=== PATIENT | female | born 1995 | race Caucasian/White ===

== ENCOUNTER 2017-07-06 21:48 | Emergency (ER) | payer BC, OTHER ==
[2017-07-06 22:18] VITALS: BP 127/84
[2017-07-06] MEDS ORDERED: metroNIDAZOLE TAB* 250 MG PO ONE (23:00)
--- NOTE | 2017-07-06 23:01 | UC ---
Complaint Female HPI - HPI Summary HPI Summary: vag d/c and itch and terminal dysuria for about a week - History Of Current Complaint Chief Complaint: UCGU Stated Complaint: POSSIBLE UTI Time Seen by Provider: 07/06/17 22:37 Hx Obtained From: Patient Hx Last Menstrual Period: 2 MOS Onset/Duration: Gradual Onset, Lasting Weeks Timing: Constant Severity Initially: Moderate Severity Currently: None Pain Intensity: 0 - hurst with urination Pain Scale Used: 0-10 Numeric Character: Burning Aggravating Factor(s): Urination Associated Signs And Symptoms: Positive: Vaginal Discharge. Negative: Fever, Back Pain, Nausea, Vomiting(# Of Episodes =), Genital Swelling, Genital Blisters , Retained Foregin Body (Specify) Related Hx: Prior STD Hx - HPV - Allergies/Home Medications Allergies/Adverse Reactions: Allergies Allergy/AdvReac Type Severity Reaction Status Date / Time Bee Venom Allergy Hives/Diff. Verified 08/16/16 09:49 Breathing/I tching Home Medications: Home Medications Ibuprofen TAB* [Advil TAB*] 600 mg PO Q6H PRN 07/06/17 [History Confirmed ] PMH/Surg Hx/FS Hx/Imm Hx Previously Healthy: Yes Other History Of: Negative For: HIV, Hepatitis B, Hepatitis C, Anticoagulant Therapy - Surgical History Surgical History: None Surgery Procedure, Year, and Place: [place] - Family History Known Family History: Positive: Hypertension - paternal grandmother, Diabetes - father Negative: Cardiac Disease - Social History Alcohol Use: Rare Substance Use Type: None Smoking Status (MU): Never Smoked Tobacco Review of Systems Constitutional: Negative Skin: Negative Eyes: Negative ENT: Negative Respiratory: Negative Cardiovascular: Negative Gastrointestinal: Negative Genitourinary: Dysuria, Other - vaginal d/c Motor: Negative Neurovascular: Negative Musculoskeletal: Negative Neurological: Negative Psychological: Negative Is Patient Immunocompromised?: No All Other Systems Reviewed And Are Negative: Yes Physical Exam Triage Information Reviewed: Yes Appearance: Well-Appearing, No Pain Distress, Well-Nourished Vital Signs: Initial Vital Signs Temp 98.2 F 07/06/17 22:12 Pulse 74 07/06/17 22:12 Resp 20 07/06/17 22:12 BP 127/84 07/06/17 22:12 Pulse Ox 100 07/06/17 22:12 Vital Signs Reviewed: Yes Eyes: Positive: Conjunctiva Clear ENT: Positive: Hearing grossly normal. Negative: Nasal congestion, Nasal drainage Neck: Positive: Supple Respiratory: Positive: Lungs clear, Normal breath sounds, No respiratory distress, No accessory muscle use Cardiovascular: Positive: RRR, No Murmur, Pulses Normal Abdomen Description: Positive: Nontender, No Organomegaly, Other: - ext gen- no lesions, vagina- thin d/c with fishy smell, cx scant mucoid d/c, no adenexal tenderness. Negative: CVA Tenderness (R), CVA Tenderness (L) Musculoskeletal Exam: Normal Neurological: Positive: Alert Psychological Exam: Normal Skin Exam: Normal Complaint Female Dx - Differential Dx/Diagnosis Provider Diagnoses: dysuria of uncertain cause. ?BV Discharge - Discharge Plan Condition: Stable Disposition: HOME Prescriptions: Metronidazole [Flagyl 500 MG TAB] 500 mg PO TID #21 tab Patient Education Materials: Dysuria (ED), Bacterial Vaginosis (ED) Referrals: No Primary Care Phys,NOPCP [Primary Care Provider] - Additional Instructions: I suspect BV tests are pending recheck for fever or worsening symtpoms recheck in 4-5 days if not better
--- NOTE | 2017-07-09 13:13 | UC ---
Progress - Progress Note Progress Note: please call the pt. with the + chlamydia results will ERx Zithromax 2 gm po x 1 please have her follow up with her pcp in one week her partner needs to be seen as well for treatment
== END 2017-07-06 23:10 | disposition home or self-care (01) ==
LOC: UCCORT 21:48
DX: R30.0 Dysuria (principal); N89.8 Other specified noninflammatory disorders of vagina; Z91.030 Bee allergy status; Z32.02 Encounter for pregnancy test, result negative
CPT/HCPCS: 81003; 84702; 87086; 87480; 87491; 87510; 87591; 87661; 99212; A9270-GY; G0463

== ENCOUNTER 2019-01-20 09:41 | Emergency (ER) | payer BC, OTHER ==
--- OUTSIDE RECORDS SUMMARY | 2019-01-20 10:43 | XMS REPORT | Continuity of Care Document ---
:1995 External Reference #:[id number] Author Name Ashleigh Ordaz Care Team Providers Name Role Phone Jaison Fregoso MD Care Team Information Contract Negotiation Specialist Unavailable Payers Date Identification Numbers Payment Provider Subscriber Effective: 2017 Policy Number: [id number] [facility] Cristian Mccoy PayID: [id number] [address] [place] [address] Advance Directives Description No Information Available Problems Description No Information Family History Date Family Member(s) Observation Comments Father Diabetes Type II Mother Hypothyroidism mom takes levothyroxine and liothyronine Siblings 1 1 brother, healthy Social History Type Date Description Comments Sex Unknown Marital Status Lives With Mother 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 Tobacco Use Start: Unknown Never Smoked Cigarettes ETOH Use Rarely consumes alcohol Recreational Drug Use Denies Drug Use Tobacco Use Start: Unknown Patient has never smoked Smoking Status Reviewed: 12/24/18 Patient has never smoked Exercise Type/Frequency Exercises regularly gym 5 days a week Allergies, Adverse Reactions, Alerts Description No Known Drug Allergies Medications Medication Date Status Form Strength Qnty SIG Indications Ordering Provider Levothyroxine Active Tablets 75mcg 90tab 1 by E03.9 [place] Sodium 8 s mouth MD Zenobia every day Velivet Active Tablets 0.1/0.125/ 1 daily Unknown 0 0.15 -0.025 mg Ferrous Active Tablets 240(27Fe) once a Unknown Gluconate 0 mg day Naproxen Sodium Active Tablets 220mg as Unknown 0 needed Vitamin C Plus Active Tablets 1000mg 1 by Unknown 0 mouth every day Levothyroxine Hx Tablets 50mcg 30tab 50mcg by E03.9 Jaison Sodium 8 - s mouth MD Zenobia daily on 8 empty stomach Omeprazole Hx Capsules 20mg 1 by Unknown 0 - DR mouth Unknown every day [facility] Vitamin B12 Hx Tablets 1000mcg 1 by Unknown 0 - mouth Unknown every day Immunizations Description No Information Available Vital Signs Date Vital Result Comment 12/24/2018 1:18pm Height 63 inches 5'3" Weight 249.00 lb w/shoes Heart Rate 76 /min BP Systolic 146 mmHg BP Diastolic 90 mmHg BMI (Body Mass Index) 44.1 kg/m2 09/19/2018 12:13pm Height 63 inches 5'3" Weight 264.00 lb w/ shoes Heart Rate 79 /min BP Systolic Sitting 149 mmHg BP Diastolic Sitting 98 mmHg BMI (Body Mass Index) 46.8 kg/m2 Results Test Date Facility Test Result H/L Range Note Comp Metabolic Panel 12/23/2018 [facility] Sodium 139 mmol/L N 135-145 [address] [place] [address] [phone] Potassium 4.2 mmol/L N 3.5-5.0 Chloride 105 mmol/L N 101-111 Co2 Carbon Dioxide 25 mmol/L N 22-32 Anion Gap 9 mmol/L N 2-11 Glucose 84 mg/dL N 70-100 Blood Urea Nitrogen 10 mg/dL N 6-24 Creatinine 0.88 mg/dL N 0.51-0.95 BUN/Creatinine Ratio 11.4 N 8-20 Calcium 9.2 mg/dL N 8.6-10.3 Total Protein 7.3 g/dL N 6.4-8.9 Albumin 4.1 g/dL N 3.2-5.2 Globulin 3.2 g/dL N 2-4 Albumin/Globulin Ratio 1.3 N 1-3 Total Bilirubin 0.50 mg/dL N 0.2-1.0 Alkaline Phosphatase 57 U/L N 34-104 Alt 44 U/L N 7-52 Ast 30 U/L N 13-39 Egfr Non- 78.3 >60 Egfr 94.7 >60 1 Lipid Profile 12/23/2018 [facility] Triglycerides 165 mg/dL 2 (Trig/Chol/HDL) [address] [place] [address] [phone] Cholesterol 168 mg/dL 3 HDL Cholesterol 49.6 mg/dL 4 LDL Cholesterol 85 mg/dL 5 Iron & Iron Binding 12/23/2018 [facility] Iron 43 g/dL Low 50-[address] [place] [address] [phone] Unsaturated Iron Binding < 346 g/dL Total Iron Binding Capacity 361 g/dL N 250-450 Transferrin 258 mg/dL N 203-362 % Iron Saturation 12 % Low 15-55 Laboratory test 12/23/2018 [facility] TSH (Thyroid 1.66 mcIU/mL N 0.34-5.[address] Stim Horm) [place] [address] [phone] Vitamin B12 477 pg/mL N 180-914 6 Vitamin D Total 25(Oh) 26.5 ng/mL N 20-50 T3 Free 4.30 pg/mL High 2.5-3.9 Free T4 (Free Thyroxine) 0.94 ng/dL N 0.61-1.12 Laboratory test 10/14/2018 [facility] Cytology SEE RESULT [address] [place] [address] [phone] Laboratory test 10/11/2018 [facility] TSH (Thyroid 4.24 mcIU/mL N 0.34-[address]) [address] [place] [address] [phone] Free T4 (Free Thyroxine) 0.97 ng/dL N 0.61-1.12 T3 Free 4.50 pg/mL High 2.5-3.9 Cortisol 23.20 g/dL 8 1 Because ethnic data is not always readily available, this report includes an eGFR for both -Americans and non- Americans. The National Kidney Disease Education Program (NKDEP) does not endorse the use of the MDRD equation for patients that are not between the ages of 18 and 70, are , have extremes of body size, muscle mass, or nutritional status, or are non- or non-. According to the National Kidney Foundation, irrespective of diagnosis, the stage of the disease is based on the level of kidney function: Stage Description GFR(mL/min/1.73 m(2)) 1 Kidney damage with normal or decreased GFR 90 2 Kidney damage with mild decrease in GFR 60-89 3 Moderate decrease in GFR 30-59 4 Severe decrease in GFR 15-29 5 Kidney failure <15 (or dialysis) 2 Desirable: <150 Borderline High: 150-199 High: 200-499 Very High: >500 3 Desirable: <200 Borderline High: 200-239 High: >239 4 Low: <40 Desirable: 40-60 High: >60 5 Desirable: <100 Near Optimal: 100-129 Borderline High: 130-159 High: 160-189 Very High: >189 6 Normal Range 180 to 914 Indeterminate Range 145 to 180 Deficient Range <145 7 SEE RESULT BELOW Name: SIVAN MCCOY : [address]: Jaison Fregoso MD Acct: [id number] Unit: [id number] AGE: 22 Location: Re10/14/18 SEX: F Status: REG REF SPEC: [id number] DORYS: 10/14/[address] [facility] [address]: Jaison Fregoso MD REQ: [id number] RECD: 10/14/18 STATUS: REBA CHO DR: Agustina Pulido MD _ ORDERED: FNA-IMG GUID BX, CYTO ADEQ-1ST P FINAL DIAGNOSIS Thyroid, right, Ultrasound guided, fine needle aspiration: -- Benign thyroid nodule, involutional type ([place] class II). The specimen demonstrates moderate watery proteinaceous fluid, an abundant amount of benign appearing follicular epithelium arranged in uniform sheets, medium sized follicles and only occasional small groups. Abundant pigmented and non-pigmented macrophages are seen in the background. No features of papillary carcinoma are seen. In this clinical setting the risk of malignancy is less than 3%. Clinical management of this thyroid nodule should be based on clinical and radiographic features as well as the above findings. THYROID RIGHT - US GUIDED FINE NEEDLE ASPIRATION CLINICAL HISTORY Hypothyroidism. Right nodule enlargement 1.5x 1.5cm IMMEDIATE INTERPRETATION Pass 1-adequate. CONTINUED ON NEXT PAGE DEPARTMENT OF PATHOLOGY, [address] [place] [address] Enrique Story M.D. Director [facility] # [id number] RUN DATE: 10/14/18 [facility] LAB LIVE PAGE 2 Patient: NADINESIVAN [id number] (Continued) GROSS DESCRIPTION (Continued) GROSS DESCRIPTION 2- alcohol fixed slide(s) 1 - passes Signed by and Reported on: Enrique Story MD 1352 END OF REPORT DEPARTMENT OF PATHOLOGY, [address] [place] [address] Enrique Story M.D. Director [facility] # [id number] 8 AM 8.7-22.4 PM <10 Procedures Description No Information Available Encounters Type Date Location Provider Dx Diagnosis Office Visit 09/19/2018 [facility] and Jaison Fregoso MD E03.9 Hypothyroidism, 12:00p [facility] unspecified R53.82 Chronic fatigue, unspecified Z68.42 Body mass index (BMI) 45.0-49.9, adult Plan of Treatment Future Appointment(s):07/18/2019 11:40 am - Jaison Fregoso MD at [facility] and Endocrinology [facility]12/24/2018 - Jaison Fregoso MDE03.9 Hypothyroidism, [id number] Chronic fatigue, [id number] Nontoxic single thyroid nodule
[2019-01-20 10:56] VITALS: BP 131/83
--- NOTE | 2019-01-20 11:18 | UC ---
UC General HPI - HPI Summary HPI Summary: 23-year-old female presents requesting testing for STIs. States she was evaluated by her STOCK CHECKER on 01/06/2019 and tested for gonorrhea, chlamydia, and HPV which were all negative. States that she had requested testing for HIV and syphilis as well however these were never ordered. She did have a negative at that visit as well. States she had requested the testing as she has a new sexual partner. Reports she has had no unprotected sex since her testing done by her STOCK CHECKER. Patient states that she had some vaginal pain and swelling the day after her pelvic exam by her STOCK CHECKER however the symptoms have since resolved. Denies fever, chills, abdominal pain, genital lesions, vaginal discharge, dyspareunia, abnormal bleeding, dysuria, frequency, or hematuria. - History of Current Complaint Chief Complaint: UCGU Stated Complaint: PERSONAL Time Seen by Provider: 01/20/19 10:54 Hx Obtained From: Patient Hx Last Menstrual Period: 01/03/19 Pain Intensity: 0 - Allergy/Home Medications Allergies/Adverse Reactions: Allergies Allergy/AdvReac Type Severity Reaction Status Date / Time bee venom protein (honey bee) Allergy Severe Hives/Diff. Verified 01/20/19 10:42 Breathing/I tching vaginal lubricant used in Allergy vaginal Uncoded 01/20/19 10:45 gyno exam swelling and burning, redness. Home Medications: Home Medications Ferrous Gluconate TAB* [Fergon TAB*] 325 mg PO DAILY 01/20/19 [History Confirmed 01/20/19] PMH/Surg Hx/FS Hx/Imm Hx Previously Healthy: Yes - Denies significant PMH Other History Of: Negative For: HIV, Hepatitis B, Hepatitis C, Anticoagulant Therapy - Surgical History Surgical History: None Surgery Procedure, Year, and Place: [place]. wisdom teeth - Family History Known Family History: Positive: Hypertension - paternal grandmother, Diabetes - father Negative: Cardiac Disease - Social History Alcohol Use: Rare Substance Use Type: None Smoking Status (MU): Never Smoked Tobacco Review of Systems All Other Systems Reviewed And Are Negative: Yes Constitutional: Negative: Fever, Chills Skin: Negative: Rash Respiratory: Positive: Negative Cardiovascular: Positive: Negative Gastrointestinal: Negative: Abdominal Pain, Vomiting, Diarrhea, Nausea Genitourinary: Negative: Dysuria, Hematuria, Frequency, Urgency, Vaginal/Penile Discharge, Ulceration/Lesion, Other - Dyspareunia Musculoskeletal: Positive: Negative Neurological: Positive: Negative Is Patient Immunocompromised?: No Physical Exam - Summary Physical Exam Summary: GENERAL APPEARANCE: Well developed, well nourished, alert and cooperative, and appears to be in no acute distress. CARDIAC: Normal S1 and S2. No S3, S4 or murmurs. Rhythm is regular. There is no peripheral edema, cyanosis or pallor. Extremities are warm and well perfused. Capillary refill is less than 2 seconds. Peripheral pulses intact. LUNGS: Clear to auscultation without rales, rhonchi, wheezing or diminished breath sounds. ABDOMEN: Positive bowel sounds. Soft, nondistended, nontender. No guarding or rebound. No masses or hepatosplenomegally. No CVA tenderness. GENTIURINARY: Patient deferred pelvic exam. MUSKULOSKELETAL: ROM intact to all extremities. No joint erythema or tenderness. Normal muscular development. Normal gait. SKIN: Skin normal color, texture and turgor with no lesions or eruptions. Triage Information Reviewed: Yes Vital Signs: Initial Vital Signs Temp 98.1 F 01/20/19 10:47 Pulse 75 01/20/19 10:47 Resp 18 01/20/19 10:47 BP 131/83 01/20/19 10:47 Pulse Ox 99 01/20/19 10:47 Vital Signs Reviewed: Yes Course/Dx - Course Course Of Treatment: 23-year-old female presents requesting testing for STIs. States she was evaluated by her STOCK CHECKER on 01/06/2019 and tested for gonorrhea, chlamydia, and HPV which were all negative. States that she had requested testing for HIV and syphilis as well however these were never ordered. She did have a negative at that visit as well. States she had requested the testing as she has a new sexual partner. Reports she has had no unprotected sex since her testing done by her STOCK CHECKER. Patient states that she had some vaginal pain and swelling the day after her pelvic exam by her STOCK CHECKER however the symptoms have since resolved. Denies fever, chills, abdominal pain, genital lesions, vaginal discharge, dyspareunia, abnormal bleeding, dysuria, frequency, or hematuria. Afebrile. Vital signs stable. Exam was unremarkable. Patient is declining testing for gonorrhea and chlamydia at this time as she states she's not had a unprotected sex since her last testing. She also declined a pelvic exam at this time. We did obtain specimens for HIV, syphilis, Gardnerella, and Trichomonas which are all pending at this time. She is to follow-up with her primary care provider or her STOCK CHECKER as needed. Reviewed information about sexually transmitted infections as well as safe sex practices with the patient. She verbalizes understanding and agrees with plan of care. - Diagnoses Provider Diagnosis: Routine screening for STI (sexually transmitted infection), Vaginal pain Discharge - Sign-Out/Discharge Documenting (check all that apply): Patient Departure All imaging exams completed and their final reports reviewed: No Studies - Discharge Plan Condition: Stable Disposition: HOME Patient Education Materials: Sexually Transmitted Diseases (ED), Safe Sex (ED) Referrals: No Primary Care Phys,NOPCP [Primary Care Provider] - Additional Instructions: As requested we have done screening for HIV, syphilis, trichimonas, and a vaginal yeast infection. Be aware that even if you test negative for HIV today there is a 3 month period of time between exposure and positive testing therefore you should use condoms consistently for the next 3 months and be retested at that time. You have been provided information on sexually transmitted infections as well as safe sex practices. Be sure to review this information. Follow up with your primary care provider or your billet heater as needed. - Billing Disposition and Condition Condition: STABLE Disposition: Home
--- NOTE | 2019-01-22 07:21 | UC ---
- Progress Note Progress Note: neg ankit neg gardnerella neg trich no change genetj 01/22/19 Course/Dx - Diagnoses Provider Diagnoses: Routine screening for STI (sexually transmitted infection), Vaginal pain Discharge - Sign-Out/Discharge Documenting (check all that apply): Post-Discharge Follow Up All imaging exams completed and their final reports reviewed: No Studies - Discharge Plan Condition: Stable Disposition: HOME Patient Education Materials: Sexually Transmitted Diseases (ED), Safe Sex (ED) Referrals: No Primary Care Phys,NOPCP [Primary Care Provider] - Additional Instructions: As requested we have done screening for HIV, syphilis, trichimonas, and a vaginal yeast infection. Be aware that even if you test negative for HIV today there is a 3 month period of time between exposure and positive testing therefore you should use condoms consistently for the next 3 months and be retested at that time. You have been provided information on sexually transmitted infections as well as safe sex practices. Be sure to review this information. Follow up with your primary care provider or your cook barbecue as needed. - Billing Disposition and Condition Condition: STABLE Disposition: Home
--- NOTE | 2019-01-22 07:24 | UC ---
- Progress Note Progress Note: neg syphilis neg HIV 1+2 please call pt with results jose 01/22/19 Course/Dx - Diagnoses Provider Diagnoses: Routine screening for STI (sexually transmitted infection), Vaginal pain Discharge - Sign-Out/Discharge Documenting (check all that apply): Post-Discharge Follow Up All imaging exams completed and their final reports reviewed: No Studies - Discharge Plan Condition: Stable Disposition: HOME Patient Education Materials: Sexually Transmitted Diseases (ED), Safe Sex (ED) Referrals: No Primary Care Phys,NOPCP [Primary Care Provider] - Additional Instructions: As requested we have done screening for HIV, syphilis, trichimonas, and a vaginal yeast infection. Be aware that even if you test negative for HIV today there is a 3 month period of time between exposure and positive testing therefore you should use condoms consistently for the next 3 months and be retested at that time. You have been provided information on sexually transmitted infections as well as safe sex practices. Be sure to review this information. Follow up with your primary care provider or your donor specialist as needed. - Billing Disposition and Condition Condition: STABLE Disposition: Home
== END 2019-01-20 11:31 | disposition home or self-care (01) ==
LOC: UCCORT 09:41
DX: R10.2 Pelvic and perineal pain (principal); Z11.3 Encounter for screening for infections with a predominantly sexual mode of transmission; Z91.030 Bee allergy status
CPT/HCPCS: 36415; 86592; 86703; 87480; 87510; 87660; 99211; G0463

== ENCOUNTER 2019-02-03 10:25 | Emergency (ER) | payer BC, OTHER ==
[2019-02-03 11:22] VITALS: BP 125/67
--- NOTE | 2019-02-03 12:02 | UC ---
Throat Pain/Nasal Emeka HPI - HPI Summary HPI Summary: Sore throat for 2 days with fever, also complains of left earache. - History of Current Complaint Chief Complaint: UCRespiratory Stated Complaint: SWOLLEN TONSILS,FEVER Time Seen by Provider: 02/03/19 11:58 Hx Obtained From: Patient Hx Last Menstrual Period: 01/30/19 ?: No Onset/Duration: Gradual Onset Severity: Moderate Pain Intensity: 8 Cough: None Associated Signs & Symptoms: Positive: Fever - Epiglottits Risk Factors Epiglottis Risk Factors: Negative - Allergies/Home Medications Allergies/Adverse Reactions: Allergies Allergy/AdvReac Type Severity Reaction Status Date / Time bee venom protein (honey bee) Allergy Severe Hives/Diff. Verified 02/03/19 11:17 Breathing/I tching vaginal lubricant used in Allergy vaginal Uncoded 02/03/19 11:17 gyno exam swelling and burning, redness. PMH/Surg Hx/FS Hx/Imm Hx Previously Healthy: Yes Other History Of: Negative For: HIV, Hepatitis B, Hepatitis C, Anticoagulant Therapy - Surgical History Surgical History: None Surgery Procedure, Year, and Place: [place]. wisdom teeth - Family History Known Family History: Positive: Hypertension - paternal grandmother, Diabetes - father Negative: Cardiac Disease - Social History Occupation: Unemployed Lives: With Family Alcohol Use: Rare Substance Use Type: None Smoking Status (MU): Never Smoked Tobacco Review of Systems All Other Systems Reviewed And Are Negative: Yes Constitutional: Positive: Fever, Fatigue ENT: Positive: Sore Throat, Ear Ache - Left earache for 2 days. Is Patient Immunocompromised?: No Physical Exam Appearance: Well-Appearing, No Pain Distress, Well-Nourished Vital Signs: Initial Vital Signs Temp 99.4 F 02/03/19 11:18 Pulse 110 02/03/19 11:18 Resp 18 02/03/19 11:18 BP 125/67 02/03/19 11:18 Pulse Ox 99 02/03/19 11:18 Vital Signs Reviewed: Yes Eye Exam: Normal ENT: Positive: Hearing grossly normal, Pharyngeal erythema, TM bulging - Left TM with erythema, mild bulging, TM red, Tonsillar exudate, Uvula midline. Negative: Trismus, Muffled voice, Hoarse voice Neck: Positive: Supple, Nontender, Enlarged Nodes @ - Tonsillar lymph node enlargement Respiratory: Positive: Lungs clear, Normal breath sounds, No respiratory distress, No accessory muscle use Cardiovascular: Positive: No Murmur, Pulses Normal, Brisk Capillary Refill, Tachycardia Abdomen Description: Positive: Nontender, No Organomegaly, Soft Bowel Sounds: Positive: Present Musculoskeletal Exam: Normal Neurological Exam: Normal Neurological: Positive: Alert, Muscle Tone Normal Psychological Exam: Normal Skin Exam: Normal Throat Pain/Nasal Course/Dx - Course Course Of Treatment: Pt comfortable here. Definite left Otitis media and likely clinical strep based on physical exam. Will treat with Amoxicillin 875 p.o. BID for 10 days. Definite recheck in 3-4 days if no improvement or if worsening symptoms. - Differential Dx/Diagnosis Provider Diagnosis: Left otitis media, Tonsillitis Discharge - Sign-Out/Discharge Documenting (check all that apply): Patient Departure All imaging exams completed and their final reports reviewed: No Studies - Discharge Plan Condition: Fair Disposition: HOME Prescriptions: Amoxicillin PO (*) [Amoxicillin 875 MG (*)] 875 mg PO BID 10 Days #20 tab Patient Education Materials: Strep Throat (DC), Ear Infection (ED) Referrals: No Primary Care Phys,NOPCP [Primary Care Provider] - [facility] [address] [Outside] Additional Instructions: Increase fluids, change your toothbrush in 24 hours, tale Tylenol every 4 hours for fever and may alternate with Motrin every 8 hours. - Billing Disposition and Condition Condition: FAIR Disposition: Home
== END 2019-02-03 12:10 | disposition home or self-care (01) ==
LOC: UCCORT 10:25
DX: H66.92 Otitis media, unspecified, left ear (principal); J03.90 Acute tonsillitis, unspecified
CPT/HCPCS: 99212; G0463

== ENCOUNTER 2019-02-15 10:05 | Emergency (ER) | payer BC ==
[2019-02-15 10:25] VITALS: BP 127/70
--- NOTE | 2019-02-15 10:49 | UC ---
Throat Pain/Nasal Emeka HPI - HPI Summary HPI Summary: Patient finished her antibiotics for strep 2 days ago. 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 Verified 02/15/19 10:26 Breathing/I tching vaginal lubricant used in Allergy vaginal Uncoded 02/15/19 10:26 gyno exam swelling and burning, redness. PMH/Surg Hx/FS Hx/Imm Hx Previously Healthy: Yes Other History Of: Negative For: HIV, Hepatitis B, Hepatitis C, Anticoagulant Therapy - Surgical History Surgical History: None Surgery Procedure, Year, and Place: [place]. wisdom teeth - Family History Known Family History: Positive: Hypertension - paternal grandmother, Diabetes - father Negative: Cardiac Disease - Social History Alcohol Use: Rare Substance Use Type: None Smoking Status (MU): Never Smoked Tobacco Review of Systems All Other Systems Reviewed And Are Negative: Yes ENT: Positive: Sore Throat Is Patient Immunocompromised?: No Physical Exam Triage Information Reviewed: Yes Appearance: Well-Appearing, Well-Nourished, Pain Distress Vital Signs: Initial Vital Signs Temp 97.6 F 02/15/19 10:18 Pulse 90 02/15/19 10:18 Resp 18 02/15/19 10:18 BP 127/70 02/15/19 10:18 Pulse Ox 98 02/15/19 10:18 Eye Exam: Normal ENT: Positive: Pharyngeal erythema - throat is slightly swollen no exudate, TMs normal, Tonsillar swelling Dental Exam: Normal Neck exam: Normal Respiratory Exam: Normal Cardiovascular Exam: Normal Bowel Sounds: Positive: Present Musculoskeletal Exam: Normal Neurological Exam: Normal Psychological Exam: Normal Skin Exam: Normal Throat Pain/Nasal Course/Dx - Course Course Of Treatment: hx obtained, exam performed ,meds reviewed, strep test was negative, given prednisone for the inflammation of the throat - Differential Dx/Diagnosis Differential Diagnosis/HQI/PQRI: Influenza, Laryngitis, Otitis Media, Pharyngitis, Sinusitis, URI Provider Diagnosis: Pharyngitis Discharge - Sign-Out/Discharge Documenting (check all that apply): Patient Departure All imaging exams completed and their final reports reviewed: No Studies - Discharge Plan Condition: Stable Disposition: HOME Patient Education Materials: Pharyngitis (ED) Referrals: No Primary Care Phys,NOPCP [Primary Care Provider] - Additional Instructions: 1. take the medication as prescribed. 2. Increase fluids and get plenty of rest. 3. Follow up as needed. - Billing Disposition and Condition Condition: STABLE Disposition: Home
== END 2019-02-15 10:54 | disposition home or self-care (01) ==
LOC: UCCORT 10:05
DX: J02.9 Acute pharyngitis, unspecified (principal); R13.10 Dysphagia, unspecified; Z88.8 Allergy status to other drugs, medicaments and biological substances; Z91.030 Bee allergy status
CPT/HCPCS: 87651; 99212; G0463